=== PATIENT | male | born 2005 | race Two or more races ===

== ENCOUNTER 2024-10-14 14:51 | Emergency (ER) | payer OTHER ==
[~2024-10-14] VITALS: Ht 165.1 cm; Wt 73.5 kg
[2024-10-14] MEDS ORDERED: LEXAPRO5 MG (15:07)
[2024-10-14] MEDS ORDERED: RINGERS SOLUTION,LACTATED 1,000 ML IV SCH (15:45)
[2024-10-14 16:30] LABS: HEMATOCRIT 41.6 % (39.0-48.0); HEMOGLOBIN 14.3 g/dL (13-16.00); MEAN CELL VOLUME 88.4 fL (80.0-100.00); MEAN CORPUSCULAR HEMOGLOBIN 30.5 pg (27.00-32.0); MEAN CORPUSCULAR HGB CONC 34.5 g/dl (32.0-36.0); PLATELET COUNT 224 K/uL (150-450); RED CELL DISTRIBUTION WIDTH 14.4 % (11.5-14.5)
[2024-10-14] MEDS ORDERED: CEFTRIAXONE SODIUM 1,000 MG VIAL IM STA (17:33)
[2024-10-14] MEDS ORDERED: AMOX1TAB5 PO (17:48)
== END 2024-10-14 18:17 | disposition home or self-care (01) ==
LOC: ER 14:53 → EMR PED 15:03 → ER 15:03 → EMR PED 18:17
DX: J34.9 Unspecified disorder of nose and nasal sinuses (principal); J03.90 Acute tonsillitis, unspecified; Z20.822 Contact with and (suspected) exposure to COVID-19

== ENCOUNTER 2024-11-11 10:26 | Emergency (ER) | payer OTHER ==
[~2024-11-11] VITALS: Ht 167.6 cm; Wt 74.8 kg
[~2024-11-11 10:26] MED LIST: AMOX1TAB5 PO; LEXAPRO5 MG
[2024-11-11 12:03] LABS: HEMATOCRIT 44.3 % (39.0-48.0); HEMOGLOBIN 14.9 g/dL (13-16.00); MEAN CELL VOLUME 89.2 fL (80.0-100.00); MEAN CORPUSCULAR HEMOGLOBIN 29.9 pg (27.00-32.0); MEAN CORPUSCULAR HGB CONC 33.6 g/dl (32.0-36.0); PLATELET COUNT 271 K/uL (150-450); RED BLOOD COUNT 4.97 M/uL (4.00-6.00); RED CELL DISTRIBUTION WIDTH 14.3 % (11.5-14.5)
[2024-11-11] MEDS ORDERED: DEXTROSE 5 % AND 0.9 % NACL 1,000 ML IV SCH (13:00)
[2024-11-11 13:05] LABS: BILIRUBIN TOTAL 0.47 mg/dL (0.3-1.2); CREATININE SERUM 0.9 mg/dL (0.70-1.30); GFR 107.58; GLOBULINA 4.9 G/DL (2.4-3.5); POTASSIUM 4.56 mEq/L (3.5-5.1); TOTAL PROTEIN 8.9 gm/dL (6.4-8.2)
[2024-11-11] MEDS ORDERED: CEFTRIAXONE SODIUM 1,000 MG VIAL IV ONE (14:30)
[2024-11-11] MEDS ORDERED: CEFDINIR300 MG PO (14:50)
[2024-11-11] MEDS ORDERED: DEXAMETHASONE4 MG PO (14:51)
[2024-11-11] MEDS ORDERED: METHYLPREDNISOLONE SOD SUCC 40 MG VIAL IV STA (16:43)
== END 2024-11-11 17:50 | disposition home or self-care (01) ==
LOC: EMR PED 10:27 → ER 10:27 → EMR PED 11:13
PROVIDERS: Emergency Medicine; Student in an Organized Health Care Education/Training Program
DX: B27.90 Infectious mononucleosis, unspecified without complication (principal); J03.90 Acute tonsillitis, unspecified; E11.9 Type 2 diabetes mellitus without complications